=== PATIENT | male | born 1955 | race Caucasian/White ===

== ENCOUNTER 2019-01-12 07:43 | Inpatient (IN) | payer MEDICARE, OTHER ==
[2019-01-02 11:33] VITALS: BMI 25.1
[2019-01-12] VITALS (38 sets, daily range): BP systolic 100–131; BP diastolic 61–85; PULSE 67–110; RESP 6–20; Ht 188 cm; Wt 87.5 kg
[~2019-01-12] VITALS: Ht 188 cm; Wt 87.5 kg
[~2019-01-12 07:43] MED LIST: ACETAMINOPHEN 1000MG/100ML IV 100 ML IVPB ONE; CEFAZOLIN 2 GM/50 ML (PMX) 50 ML IVPB SCH; DEXAMETHASONE 4 MG/ML 1 ML INJ IV SCH; LACTATED RINGER'S 1,000 ML IV SCH; TRANEXAMIC ACID 1GM/100ML(PMX) 100 ML IVPB SCH
[2019-01-12] MEDS ORDERED: DEXAMETHASONE 4 MG/ML 1 ML INJ ONE (08:52)
[2019-01-12] MEDS ORDERED: POLYMYXIN B 500000 UNIT INJ ONE (10:19)
[2019-01-12] MEDS ORDERED: TRANEXAMIC ACID 1GM/100ML(PMX) 200 ML ONE (10:19)
--- NOTE | 2019-01-12 10:22 | HPN ---
Date/Time of Note Date/Time of Note DATE: 01/12/19 TIME: 10:22 Interval H&P Admission Note Pt. seen H&P reviewed: No system changes CRYSTAL LAMB Jan 12, 2019 10:22
--- NOTE | 2019-01-12 10:41 | PREAC ---
Date/Time of Note Date/Time of Note DATE: 01/12/19 TIME: 10:39 Anesthesia Eval and Record Evaluation Time Pre-Procedure Interview DATE: 01/12/19 TIME: 10:39 Age 63 Sex male NPO: 8 hrs Preoperative diagnosis degenerative joint disease Planned procedure total knee replacement Past Medical History Past Medical History: Includes Cardio: HTN, Dyslipidemia Surgery & Anesthesia Issues No known issue Meds Anticoagulation: No Beta Nilson within 24 hr: No Reason Beta Nilson not given: Pt. not on B-Nilson No Active Prescriptions or Reported Meds Current Medications Cefazolin Sodium/ Dextrose 50 ml @ 100 mls/hr ONCE IVPB ; Start 01/12/19 at 11:00; Stop 01/12/19 at 18:00 Acetaminophen 100 ml @ 400 mls/hr ONCE ONCE IVPB Last administered on 01/12/19at 09:03; Admin Dose 400 MLS/HR; Start 01/12/19 at 11:00; Stop 01/12/19 at 11:14 Dexamethasone (Decadron) 4 mg ONCE IV Last administered on 01/12/19at 09:02; Admin Dose 4 MG; Start 01/12/19 at 11:00; Stop 01/12/19 at 18:00 Ropivacaine/ Clonidine HCl/ Epinephrine/ Ketorolac Tromethamine/ Sodium Chloride INTRA-OP ONCE IRR ; Start 01/12/19 at 11:00; Stop 01/12/19 at 11:01 Lactated Ringer's 1,000 ml @ 125 mls/hr Q8H IV Last administered on 01/12/19at 09:04; Admin Dose 125 MLS/HR; Start 01/12/19 at 07:00; Stop 01/12/19 at 14:59 Meds reviewed: Yes Allergies Coded Allergies: zolpidem (Verified Allergy, Severe, HALLUCINATIONS, 01/12/19) Allergies Reviewed: Yes Labs/Studies Labs Reviewed: Reviewed by anesthesiologist test: N/A Pre-procedure Exam Last vitals Vital Signs Date Temp Pulse Resp B/P (MAP) Pulse Ox O2 O2 Flow FiO2 Time Delivery Rate 01/12/19 97.5 78 16 104/70 98 Room Air 09:33 (81) Airway: Adequate mouth opening, Adequate thyromental dist Mallampati: Mallampati IV Teeth: Normal Lung: Normal Heart: Normal ASA Physical Status ASA physical status: 2 Emergency: None Pre-operative Attestations Prior to commencing anesthesia and surgery, the patient was re-evaluated, there was verification of: *The patient's identity *The results of appropriate recent lab work and preoperative vital signs *The above evaluation not changing prior to induction *Anesthetic plan, risk benefits, alternative and complications discussed with patient/family; questions answered; patient/family understands, accepts and wishes to proceed. FAHEEM WINKLER DO Jan 12, 2019 10:41
[2019-01-12] MEDS ORDERED: PROPOFOL 20 ML ONE (10:44)
[2019-01-12] MEDS ORDERED: FENTAnyl 50 MCG/ML VIAL ONE (10:44)
[2019-01-12] MEDS ORDERED: MIDAZOLAM 1 MG/ML 2 ML INJ ONE (10:44)
[2019-01-12] MEDS ORDERED: LIDOCAINE 2% (SDV) 5 ML INJ ONE (10:44)
[2019-01-12] MEDS ORDERED: CEFAZOLIN 1 GM INJ ONE (10:58)
[2019-01-12] MEDS ORDERED: ACETAMINOPHEN 1000MG/100ML IV 100 ML IVPB ONE (11:00)
[2019-01-12] MEDS ORDERED: DEXAMETHASONE 4 MG/ML 1 ML INJ IV SCH (11:00)
[2019-01-12] MEDS ORDERED: CEFAZOLIN 2 GM/50 ML (PMX) 50 ML IVPB SCH (11:00)
[2019-01-12] MEDS ORDERED: DEXAMETHASONE 4 MG/ML 5 ML INJ ONE (11:22)
[2019-01-12] MEDS ORDERED: ONDANSETRON 4 MG INJ ONE (11:22)
[2019-01-12] MEDS ORDERED: BACITRACIN 50000 UNITS INJ INJ ONE (11:39)
--- NOTE | 2019-01-12 13:13 | SIPON ---
Date/Time of Note Date/Time of Note DATE: 01/12/19 TIME: 13:12 Operative Report Preoperative Diagnosis Failed right knee replacement Postoperative Diagnosis Same Operation/Procedure Performed Revision of right total knee replacement Surgeon see signature line printing assistant Nazanin Tirado PA-C Anesthesia: spinal Estimated blood loss: 250 - 300 ml's Transfusion Required none Specimen Cultures Grafts/Implants none Complications none CRYSTAL LAMB Jan 12, 2019 13:13
--- NOTE | 2019-01-12 13:19 | OPR ---
Date/Time of Note Date/Time of Note DATE: 01/12/19 TIME: 13:13 Operative Report Procedure Date: Jan 12, 2019 Preoperative Diagnosis Failed right knee replacement Postoperative Diagnosis Same Operation/Procedure Performed Revision of right total knee replacement Surgeon see signature line Belt Loop Maker MARCUS Back Anesthesia Type: spinal Estimated Blood Loss: 250 - 300 ml's Transfusion none Specimen Cultures and explant Grafts/Implants Attune revision knee, size 6 femur, size 6 tibia, 14 mm polyethylene and 38 patella. A 45 mm femoral sleeve along with 18 x 60 mm femoral stem; 40 mm tibial sleeve with a 16 x 60 mm tibial stem. Tubes/Drains None Complications none Pt Condition Post Procedure: stable Disposition: PACU Indications The patient is a 63-year-old male with a progressive pain in his right knee replacement. Bone scan shows loosening of the tibial component. There is possible loosening of the femoral component as well Procedure Description The patient was placed supine on the operating room table. The right knee was prepped and draped in usual manner. Examination of the knee showed mild instability. Quadriceps atrophy was noted. An anterior incision was made. A mid vastus approach was used. Medial and lateral gutters were cleared of scar tissue. There was evidence of polyethylene wear and osteo lysis and granulation tissue formation due to poly-wear. The femoral and tibial components were removed with the help of microsagittal saw and flexible osteotomes. The tibial component was loose. There was no evidence of fracture or bone loss, however osteolysis was noted on the femoral side. The patellar component was removed as well. Debridement of the knee was done. The knee was thoroughly irrigated and all remnants of previous cement was removed. The tibial preparation was done for a 16 x 60 mm stem along with a 40 mm sleeve from the attune knee system. The tibia was measured to be a size 6. On the femoral side, the femur was prepared for a size 6 component with a 45 mm sleeve and 18 x 60 mm stem. Trial components were inserted along with a 14 mm rotating platform polyethylene. This resulted in a stable knee from 0 to 130 degrees with good balance and tracking. X-rays confirm proper alignment of the implants. A mild valgus orientation of the lower extremity was accepted due to excellent balance and stability of the knee. The knee was injected with pain cocktail. Hemostasis was confirmed with electrocautery and aqua mantis. The trials were removed. The knee was thoroughly irrigated and final components assembled on the back table. The components were porous-coated on the sleeves. Both femoral and tibial components were placed with cement on the cut surface and porous-coated sleeves for ingrowth. 14 mm of rotating platform polyethylene was placed to complete the knee replacement. Excess cement was removed. The knee was stable with full range of motion. The knee was closed in layers using #1 strata fix for deep fascia, 2-0 Vicryl for subcutaneous tissue and 3-0 Monocryl for the skin. Patient was transferred to the recovery room in stable condition CRYSTAL LAMB Jan 12, 2019 13:19
[2019-01-12] MEDS ORDERED: ROPIVACAINE 0.5 % 30 ML VIAL ONE (13:28)
[2019-01-12] MEDS ORDERED: NALOXONE (0.4 MG/ML) INJ IV PRN (13:30)
[2019-01-12] MEDS ORDERED: NACL 0.9% 3 ML SYG IV SCH (13:30)
[2019-01-12] MEDS ORDERED: oxyCODONE 5 MG TAB PO PRN ×2 (13:30)
--- NOTE | 2019-01-12 14:04 | PAC ---
Date/Time of Note Date/Time of Note DATE: 01/12/19 TIME: 14:03 Post-Anesthesia Notes Post-Anesthesia Note Last documented vital signs Vital Signs Date Temp Pulse Resp B/P (MAP) Pulse Ox O2 O2 Flow FiO2 Time Delivery Rate 01/12/19 98 75 18 105/65 98 Room Air 09:33 Activity: WNL Respiratory function: WNL Cardiovascular function: WNL Mental status: Baseline Pain reasonably controlled: Yes Hydration appropriate: Yes Nausea/Vomiting absent: Yes FAHEEM WINKLER DO Jan 12, 2019 14:04
[2019-01-12] MEDS: HYDROmorphONE 1 MG/5 ML IV SYRINGE IV PRN ×2 (14:26→14:36)
[2019-01-12] MEDS ORDERED: HYDROmorphONE 1 MG/5 ML IV SYRINGE IV PRN ×2 (14:30)
[2019-01-12] MEDS: CEFAZOLIN 2 GM/50 ML (PMX) 50 ML IVPB SCH ×2 (15:38→22:32)
[2019-01-12] MEDS: oxyCODONE 5 MG TAB PO PRN ×2 (17:52→23:53)
[2019-01-12] MEDS: LACTATED RINGER'S 1,000 ML IV SCH (17:53)
[2019-01-12] MEDS: KETOROLAC 15 MG INJ IV PRN (18:38)
[2019-01-12] MEDS ORDERED: ONDANSETRON 4 MG INJ IV PRN (19:00)
[2019-01-12] MEDS: HYDROmorphONE 1 MG/ML SYG IV PRN ×2 (19:19→22:49)
[2019-01-12] MEDS: traZODone 50 MG TAB PO SCH (22:31)
[2019-01-12] MEDS: GABAPENTIN 100 MG CAP PO SCH (22:32)
[2019-01-13] VITALS: BP 104/59; PULSE 96; RESP 20
[2019-01-13] MEDS: LACTATED RINGER'S 1,000 ML IV SCH ×3 (01:49→22:25)
--- NOTE | 2019-01-13 03:07 | HP ---
Date/Time of Note Date/Time of Note DATE: 01/13/19 TIME: 03:05 Assessment/Plan VTE Prophylaxis Risk score (from Nsg)>0 risk: 3 SCD applied (from Nsg): Yes Lines/Catheters IV Catheter Type (from Nrsg): Peripheral IV Urinary Cath still in place: Yes Assessment/Plan Assessment/Plan Failed right knee replacement Revision of right total knee replacement - per ortho GERD - protonix HPI/ROS Admit Date/Time Admit Date/Time Jan 12, 2019 at 07:43 PMH/Family/Social Past Medical History Medications Current Medications Lactated Ringer's 1,000 ml @ 80 mls/hr [id number] IV Last administered on 12/31 10/18at 17:53; Admin Dose 80 MLS/HR; Start 01/12/19 at 13:19 IV Flush (NS 3 ml) 3 ml PER PROTOCOL IV ; Start 01/12/19 at 13:30 Oxycodone HCl (Roxicodone) 15 mg Q4H PRN PO .PAIN Last administered on 01/12/19at 23:53; Admin Dose 15 MG; Start 01/12/19 at 13:30 Oxycodone HCl (Roxicodone) 10 mg Q4H PRN PO .PAIN; Start 01/12/19 at 13:30 Oxycodone HCl (Roxicodone) 5 mg Q4H PRN PO .PAIN; Start 01/12/19 at 13:30 Ketorolac Tromethamine (Toradol) 15 mg Q6H PRN IV .PAIN Last administered on 01/12/19at 18:38; Admin Dose 15 MG; Start 01/12/19 at 13:30 Cefazolin Sodium/ Dextrose 50 ml @ 100 mls/hr Q8H IVPB Last administered on 01/12/19at 22:32; Admin Dose 100 MLS/HR; Start 01/12/19 at 13:30; Stop 01/13/19 at 05:59 Celecoxib (Celebrex) 100 mg BID PO ; Start 01/13/19 at 09:00 Gabapentin (Neurontin) 100 mg TID PO Last administered on 01/12/19at 22:32; Admin Dose 100 MG; Start 01/12/19 at 21:00 Pantoprazole (Protonix Tab) 40 mg DAILY@06 PO ; Start 01/14/19 at 06:00 Docusate Sodium (Colace) 200 mg BID PO ; Start 01/13/19 at 09:00; Stop 01/16/19 at 08:59 Magnesium Hydroxide (Milk Of Mag) 30 ml HS PRN PO .CONSTIPATION; Start 01/12/19 at 13:30 Naloxone HCl (Narcan) 0.2 mg Q2M PRN IV .RESP RATE; Start 01/12/19 at 13:30 Aspirin (Halfprin) 81 mg BID PO ; Start 01/13/19 at 09:00 Trazodone HCl (Desyrel) 50 mg HS PO Last administered on 01/12/19at 22:31; Admin Dose 50 MG; Start 01/12/19 at 21:00 Hydromorphone HCl (Dilaudid) 1 mg Q3H PRN IV SEVERE PAIN LEVEL 7-10 Last administered on 01/12/19at 22:49; Admin Dose 1 MG; Start 01/12/19 at 19:00 Ondansetron HCl (Zofran Inj) 4 mg Q4H PRN IV NAUSEA AND/OR VOMITING; Start 01/12/19 at 19:00 Coded Allergies: zolpidem (Verified Allergy, Severe, HALLUCINATIONS, 01/12/19) Social History Smoking Status: Never smoker Exam/Review of Systems Vital Signs Vitals Vital Signs Date Temp Pulse Resp B/P (MAP) Pulse Ox O2 O2 Flow FiO2 Time Delivery Rate 01/13/19 98.6 96 20 104/59 98 Room Air 00:00 (74) Intake and Output 01/12/19 01/12/19 01/13/19 1515:00 23:00 07:00 IntakeIntake Total 1700 ml 500 ml OutputOutput Total 100 ml 800 ml BalanceBalance 1600 ml -300 ml LUIS A HERBERT Jan 13, 2019 03:07
[2019-01-13] MEDS: HYDROmorphONE 1 MG/ML SYG IV PRN ×5 (03:34→20:11)
[2019-01-13] MEDS: oxyCODONE 5 MG TAB PO PRN ×2 (04:36→17:00)
[2019-01-13] MEDS: CEFAZOLIN 2 GM/50 ML (PMX) 50 ML IVPB SCH (06:39)
[2019-01-13 07:22] VITALS: BP 105/57; PULSE 79; RESP 19
[2019-01-13] MEDS: GABAPENTIN 100 MG CAP PO SCH ×3 (08:18→20:12)
[2019-01-13] MEDS: DOCUSATE SODIUM 100 MG CAP PO SCH ×2 (08:18→20:11)
[2019-01-13] MEDS: ASPIRIN (EC) 81 MG TAB PO SCH ×2 (08:18→20:12)
[2019-01-13] MEDS: PANTOPRAZOLE (EC) 40 MG TAB PO SCH (08:18)
[2019-01-13] MEDS: CELECOXIB 100 MG CAP PO SCH ×2 (08:18→20:11)
[2019-01-13] MEDS: KETOROLAC 15 MG INJ IV PRN ×2 (08:26→21:08)
[2019-01-13] MEDS ORDERED: ONDANSETRON 4 MG INJ IV PRN (13:30)
[2019-01-13] MEDS: MAGNESIUM HYDROXIDE 30ML CUP PO PRN (17:42)
--- NOTE | 2019-01-13 19:01 | CONS ---
Assessment/Plan Assessment/Plan Hospital Course (Demo Recall) 63-year-old male underwent revision of right total knee replacement on . When he woke up from the surgery he noticed he had an indwelling Bell catheter and he complains that he feels bloated and thinks that the catheter is not draining well. The patient denies any prior history of voiding problems he usually has nocturia about 2 times a night and during the day he voids every 3 hours, he denies any dysuria, no history of gross hematuria, his urinary stream is strong, he denies any postvoid dribbling and he feels he empties his bladder well. On the exam the Bell catheter is in good position and it is draining well and the urine is clear. Impression: Patient may be having bladder spasms because of the irritation from the Bell catheter. Plan: Since he had no prior history of urinary problems we will discontinue the Bell catheter at 6 AM and see if he does void. I will also put him on tamsulosin just in case there is any obstructive element from the prostate.DO urine culture Consultation Date/Type/Reason Admit Date/Time Jan 12, 2019 at 07:43 Date of Consultation: Jan 13, 2019 Type of Consult Urology Reason for Consultation Penile pain, indwelling Bell catheter with question of blockage Requesting Provider: BRIAN BLEVINS MD Date/Time of Note DATE: 01/13/19 TIME: 18:47 Hx of Present Illness 63-year-old male underwent revision of right total knee replacement on 01/12/2019. When he woke up from the surgery he noticed he had an indwelling Bell catheter and he complains that he feels bloated and thinks that the catheter is not draining well. The patient denies any prior history of voiding problems he usually has nocturia about 2 times a night and during the day he voids every 3 hours, he denies any dysuria, no history of gross hematuria, his urinary stream is strong, he denies any postvoid dribbling and he feels he empties his bladder well. Constitutional: no complaints Eyes: no complaints ENT: no complaints Respiratory: no complaints; No shortness of breath Cardiovascular: no complaints; No chest pain Gastrointestinal: no complaints, other (Complains of hemorrhoids) Genitourinary: other (As per history of present illness) Musculoskeletal: no complaints, other (Status post right knee replacement revision) Skin: no complaints Neurologic: no complaints Endocrine: no complaints Psychological: no complaints Immunologic: no complaints Past Medical History Medical History: high cholesterol Home Meds No Active Prescriptions or Reported Meds Medications Current Medications Lactated Ringer's 1,000 ml @ 80 mls/hr [id number] IV Last administered on 01/13/19 08:26; Admin Dose 80 MLS/HR; Start 01/12/19 at 13:19 IV Flush (NS 3 ml) 3 ml PER PROTOCOL IV ; Start 01/12/19 at 13:30 Oxycodone HCl (Roxicodone) 15 mg Q4H PRN PO .PAIN Last administered on 01/13/19 17:00; Admin Dose 15 MG; Start 01/12/19 at 13:30 Oxycodone HCl (Roxicodone) 10 mg Q4H PRN PO .PAIN; Start 01/12/19 at 13:30 Oxycodone HCl (Roxicodone) 5 mg Q4H PRN PO .PAIN; Start 01/12/19 at 13:30 Ketorolac Tromethamine (Toradol) 15 mg Q6H PRN IV .PAIN Last administered on 01/13/19 08:26; Admin Dose 15 MG; Start 01/12/19 at 13:30 Celecoxib (Celebrex) 100 mg BID PO Last administered on 01/13/19 08:18; Admin Dose 100 MG; Start 01/13/19 at 09:00 Gabapentin (Neurontin) 100 mg TID PO Last administered on 01/13/19 13:01; Admin Dose 100 MG; Start 01/12/19 at 21:00 Docusate Sodium (Colace) 200 mg BID PO Last administered on 01/13/19 08:18; Admin Dose 200 MG; Start 01/13/19 at 09:00; Stop 01/16/19 at 08:59 Magnesium Hydroxide (Milk Of Mag) 30 ml HS PRN PO .CONSTIPATION Last administered on 01/13/19 17:42; Admin Dose 30 ML; Start 01/12/19 at 13:30 Naloxone HCl (Narcan) 0.2 mg Q2M PRN IV .RESP RATE; Start 01/12/19 at 13:30 Aspirin (Halfprin) 81 mg BID PO Last administered on 01/13/19at 08:18; Admin Dose 81 MG; Start 01/13/19 at 09:00 Trazodone HCl (Desyrel) 50 mg HS PO Last administered on 01/12/19at 22:31; Admin Dose 50 MG; Start 01/12/19 at 21:00 Hydromorphone HCl (Dilaudid) 1 mg Q3H PRN IV SEVERE PAIN LEVEL 7-10 Last administered on 01/13/19at 16:26; Admin Dose 1 MG; Start 01/12/19 at 19:00 Ondansetron HCl (Zofran Inj) 4 mg Q4H PRN IV NAUSEA AND/OR VOMITING; Start 01/12/19 at 19:00 Pantoprazole (Protonix Tab) 40 mg DAILY@06 PO Last administered on 01/13/19at 08:18; Admin Dose 40 MG; Start 01/13/19 at 08:30 Allergies: Coded Allergies: zolpidem (Verified Allergy, Severe, HALLUCINATIONS, 01/12/19) Past Surgical History Past Surgical Hx: other (Inguinal hernia repair x2, colonoscopy, pyloroplasty at age 3 weeks) Social History Alcohol Use: none Smoking Status: Never smoker Drug Use: none Other Social History He is single Exam/Review of Systems Exam Vitals Vital Signs Date Temp Pulse Resp B/P (MAP) Pulse Ox O2 O2 Flow FiO2 Time Delivery Rate 01/13/19 98.2 79 19 105/57 98 07:22 (73) 01/13/19 Room Air 00:00 Intake and Output 01/12/19 01/12/19 01/13/19 1515:00 23:00 07:00 IntakeIntake Total 1700 ml 500 ml 800 ml OutputOutput Total 100 ml 800 ml BalanceBalance 1600 ml -300 ml 800 ml Constitutional: alert, oriented Psych: no complaints Head: normocephalic Eyes: nl conjunctiva Neck: supple, non-tender Respiratory: normal air movement; No wheezing Cardiovascular: No jugular venous distention (JVD) Gastrointestinal: soft Genitourinary - Male: nl penis, nl scrotum, other (Has an indwelling Bell catheter that is in good position and draining clear urine) Musculoskeletal: nl extremities to inspection, other (Patient is post surgery on his right knee) Extremities: other (Status post surgery on the right knee) Neurological: nl mental status Skin: nl turgor Lymph: nl lymph nodes Results Result Diagram: 01/13/19 0501 01/13/19 0501 Results 24hrs Laboratory Tests Test 01/13/19 05:01 01/13/19 07:34 01/13/19 12:00 White Blood Count 12.7 H Red Blood Count 3.35 L Hemoglobin 10.5 L Hematocrit 30.8 L Mean Corpuscular Volume 91.9 Mean Corpuscular Hemoglobin 31.3 Mean Corpuscular 34.1 Hemoglobin Concent Red Cell Distribution Width 12.6 Platelet Count 181 Mean Platelet Volume 9.5 Immature Granulocytes % 0.600 H Neutrophils % 77.8 H Lymphocytes % 10.6 L Monocytes % 10.9 Eosinophils % 0.0 Basophils % 0.1 Nucleated Red Blood Cells % 0.0 Immature Granulocytes # 0.080 H Neutrophils # 9.9 H Lymphocytes # 1.4 Monocytes # 1.4 H Eosinophils # 0.0 Basophils # 0.0 Nucleated Red Blood Cells # 0.0 Sodium Level 140 Potassium Level 4.2 Chloride Level 107 Carbon Dioxide Level 24 Anion Gap 9 Blood Urea Nitrogen 18 Creatinine 0.81 Est Glomerular Filtrat > 60 Rate mL/min Glucose Level 135 Calcium Level 8.2 L Lab Scanned Report REFERENCE LAB Urine Color YELLOW Urine Clarity SLIGHTLY CLOUDY A Urine pH 5.0 Urine Specific [place] 1.032 H Urine Ketones TRACE A Urine Nitrite NEGATIVE Urine Bilirubin NEGATIVE Urine Urobilinogen NEGATIVE Urine Leukocyte Esterase NEGATIVE Urine Microscopic RBC 101 H Urine Microscopic WBC 7 H Urine Mucus FEW A Urine Hemoglobin 3+ H Urine Glucose NEGATIVE Urine Total Protein 1+ H Medications Medication Current Medications Lactated Ringer's 1,000 ml @ 80 mls/hr [id number] IV Last administered on 01/13/19at 08:26; Admin Dose 80 MLS/HR; Start 01/12/19 at 13:19 IV Flush (NS 3 ml) 3 ml PER PROTOCOL IV ; Start 01/12/19 at 13:30 Oxycodone HCl (Roxicodone) 15 mg Q4H PRN PO .PAIN Last administered on 01/13/19at 17:00; Admin Dose 15 MG; Start 01/12/19 at 13:30 Oxycodone HCl (Roxicodone) 10 mg Q4H PRN PO .PAIN; Start 01/12/19 at 13:30 Oxycodone HCl (Roxicodone) 5 mg Q4H PRN PO .PAIN; Start 01/12/19 at 13:30 Ketorolac Tromethamine (Toradol) 15 mg Q6H PRN IV .PAIN Last administered on 01/13/19 08:26; Admin Dose 15 MG; Start 01/12/19 at 13:30 Celecoxib (Celebrex) 100 mg BID PO Last administered on 01/13/19 08:18; Admin Dose 100 MG; Start 01/13/19 at 09:00 Gabapentin (Neurontin) 100 mg TID PO Last administered on 01/13/19 13:01; Admin Dose 100 MG; Start 01/12/19 at 21:00 Docusate Sodium (Colace) 200 mg BID PO Last administered on 01/13/19 08:18; Admin Dose 200 MG; Start 01/13/19 at 09:00; Stop 01/16/19 at 08:59 Magnesium Hydroxide (Milk Of Mag) 30 ml HS PRN PO .CONSTIPATION Last administered on 01/13/19 17:42; Admin Dose 30 ML; Start 01/12/19 at 13:30 Naloxone HCl (Narcan) 0.2 mg Q2M PRN IV .RESP RATE; Start 01/12/19 at 13:30 Aspirin (Halfprin) 81 mg BID PO Last administered on 01/13/19 08:18; Admin Dose 81 MG; Start 01/13/19 at 09:00 Trazodone HCl (Desyrel) 50 mg HS PO Last administered on 01/12/19 22:31; Admin Dose 50 MG; Start 01/12/19 at 21:00 Hydromorphone HCl (Dilaudid) 1 mg Q3H PRN IV SEVERE PAIN LEVEL 7-10 Last administered on 01/13/19 16:26; Admin Dose 1 MG; Start 01/12/19 at 19:00 Ondansetron HCl (Zofran Inj) 4 mg Q4H PRN IV NAUSEA AND/OR VOMITING; Start 01/12/19 at 19:00 Pantoprazole (Protonix Tab) 40 mg DAILY@06 PO Last administered on 01/13/19 08:18; Admin Dose 40 MG; Start 01/13/19 at 08:30 BLANCA SINGER MD Jan 13, 2019 18:57
[2019-01-13 19:25] VITALS: BP 107/64; PULSE 89; RESP 20
[2019-01-13] MEDS: traZODone 50 MG TAB PO SCH (20:11)
[2019-01-13] MEDS: TAMSULOSIN (SR) 0.4 MG CAP PO SCH (20:11)
[2019-01-14] MEDS: oxyCODONE 5 MG TAB PO PRN ×6 (00:19→23:58)
[2019-01-14] MEDS ORDERED: AL HYDROX/MG HYDROX/SIMETH 30 ML CUP PO PRN (00:30)
[2019-01-14] MEDS: ACETAMINOPHEN 325 MG TAB PO PRN ×2 (00:41→17:27)
[2019-01-14 02:15] VITALS: BP 96/58; PULSE 94; RESP 20
[2019-01-14] MEDS: HYDROmorphONE 1 MG/ML SYG IV PRN ×4 (03:59→20:34)
[2019-01-14] MEDS ORDERED: PANTOPRAZOLE (EC) 40 MG TAB PO SCH (06:00)
[2019-01-14] MEDS: PANTOPRAZOLE (EC) 40 MG TAB PO SCH (06:12)
[2019-01-14 07:15] VITALS: BP 102/60; PULSE 87; RESP 14
[2019-01-14] MEDS: ASPIRIN (EC) 81 MG TAB PO SCH ×2 (08:28→20:35)
[2019-01-14] MEDS: GABAPENTIN 100 MG CAP PO SCH ×3 (08:28→20:34)
[2019-01-14] MEDS: CELECOXIB 100 MG CAP PO SCH ×2 (08:28→20:35)
[2019-01-14] MEDS: DOCUSATE SODIUM 100 MG CAP PO SCH ×2 (08:28→20:35)
--- NOTE | 2019-01-14 11:13 | PN ---
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 - per ortho GERD - protonix Result Diagram: 01/14/199 01/14/19 0439 Results 24hrs Laboratory Tests Test 01/13/19 12:00 01/14/19 04:39 Urine Color YELLOW Urine Clarity SLIGHTLY CLOUDY A Urine pH 5.0 Urine Specific Sharples 1.032 H Urine Ketones TRACE A Urine Nitrite NEGATIVE Urine Bilirubin NEGATIVE Urine Urobilinogen NEGATIVE Urine Leukocyte Esterase NEGATIVE Urine Microscopic RBC 101 H Urine Microscopic WBC 7 H Urine Mucus FEW A Urine Hemoglobin 3+ H Urine Glucose NEGATIVE Urine Total Protein 1+ H White Blood Count 7.7 # Red Blood Count 2.87 L Hemoglobin 9.1 L Hematocrit 27.0 L Mean Corpuscular Volume 94.1 Mean Corpuscular Hemoglobin 31.7 Mean Corpuscular Hemoglobin Concent 33.7 Red Cell Distribution Width 12.9 Platelet Count 148 Mean Platelet Volume 9.5 Immature Granulocytes % 0.100 Neutrophils % 72.6 Lymphocytes % 14.6 L Monocytes % 12.4 H Eosinophils % 0.0 Basophils % 0.3 Nucleated Red Blood Cells % 0.0 Immature Granulocytes # 0.010 Neutrophils # 5.6 Lymphocytes # 1.1 Monocytes # 1.0 H Eosinophils # 0.0 Basophils # 0.0 Nucleated Red Blood Cells # 0.0 Sodium Level 140 Potassium Level 4.0 Chloride Level 107 Carbon Dioxide Level 28 Anion Gap 5 Blood Urea Nitrogen 19 Creatinine 0.77 Est Glomerular Filtrat Rate mL/min > 60 Glucose Level 124 Calcium Level 7.9 L Subjective 24 Hr Interval Summary Free Text/Dictation Patient has pain in knee Exam/Review of Systems Exam Vitals Vital Signs Date Temp Pulse Resp B/P (MAP) Pulse Ox O2 O2 Flow FiO2 Time Delivery Rate 01/14/19 98.1 87 14 102/60 98 Room Air 07:15 (74) Intake and Output 01/13/19 01/13/19 01/14/19 1515:00 23:00 07:00 IntakeIntake Total 50 ml 840 ml OutputOutput Total 1330 ml BalanceBalance 50 ml -490 ml Constitutional: well developed Head: normocephalic, atraumatic Neck: supple Respiratory: diminished breath sounds Cardiovascular: regular rate and rhythm Gastrointestinal: soft, non-tender Extremities: normal pulses Results Results 24hrs Laboratory Tests Test 01/13/19 12:00 01/14/19 04:39 Urine Color YELLOW Urine Clarity SLIGHTLY CLOUDY A Urine pH 5.0 Urine Specific Sharples 1.032 H Urine Ketones TRACE A Urine Nitrite NEGATIVE Urine Bilirubin NEGATIVE Urine Urobilinogen NEGATIVE Urine Leukocyte Esterase NEGATIVE Urine Microscopic RBC 101 H Urine Microscopic WBC 7 H Urine Mucus FEW A Urine Hemoglobin 3+ H Urine Glucose NEGATIVE Urine Total Protein 1+ H White Blood Count 7.7 # Red Blood Count 2.87 L Hemoglobin 9.1 L Hematocrit 27.0 L Mean Corpuscular Volume 94.1 Mean Corpuscular Hemoglobin 31.7 Mean Corpuscular Hemoglobin Concent 33.7 Red Cell Distribution Width 12.9 Platelet Count 148 Mean Platelet Volume 9.5 Immature Granulocytes % 0.100 Neutrophils % 72.6 Lymphocytes % 14.6 L Monocytes % 12.4 H Eosinophils % 0.0 Basophils % 0.3 Nucleated Red Blood Cells % 0.0 Immature Granulocytes # 0.010 Neutrophils # 5.6 Lymphocytes # 1.1 Monocytes # 1.0 H Eosinophils # 0.0 Basophils # 0.0 Nucleated Red Blood Cells # 0.0 Sodium Level 140 Potassium Level 4.0 Chloride Level 107 Carbon Dioxide Level 28 Anion Gap 5 Blood Urea Nitrogen 19 Creatinine 0.77 Est Glomerular Filtrat Rate mL/min > 60 Glucose Level 124 Calcium Level 7.9 L Medications Medication Current Medications Lactated Ringer's 1,000 ml @ 80 mls/hr [id number] IV Last administered on 01/13/19at 08:26; Admin Dose 80 MLS/HR; Start 01/12/19 at 13:19 IV Flush (NS 3 ml) 3 ml PER PROTOCOL IV ; Start 01/12/19 at 13:30 Oxycodone HCl (Roxicodone) 15 mg Q4H PRN PO .PAIN Last administered on 01/14/19at 10:07; Admin Dose 15 MG; Start 01/12/19 at 13:30 Oxycodone HCl (Roxicodone) 10 mg Q4H PRN PO .PAIN; Start 01/12/19 at 13:30 Oxycodone HCl (Roxicodone) 5 mg Q4H PRN PO .PAIN; Start 01/12/19 at 13:30 Ketorolac Tromethamine (Toradol) 15 mg Q6H PRN IV .PAIN Last administered on 01/13/19 21:08; Admin Dose 15 MG; Start 01/12/19 at 13:30 Celecoxib (Celebrex) 100 mg BID PO Last administered on 01/14/19 08:28; Admin Dose 100 MG; Start 01/13/19 at 09:00 Gabapentin (Neurontin) 100 mg TID PO Last administered on 01/14/19 08:28; Adm in Dose 100 MG; Start 01/12/19 at 21:00 Docusate Sodium (Colace) 200 mg BID PO Last administered on 01/14/19 08:28; Admin Dose 200 MG; Start 01/13/19 at 09:00; Stop 01/16/19 at 08:59 Magnesium Hydroxide (Milk Of Mag) 30 ml HS PRN PO .CONSTIPATION Last administered on 01/13/19 17:42; Admin Dose 30 ML; Start 01/12/19 at 13:30 Naloxone HCl (Narcan) 0.2 mg Q2M PRN IV .RESP RATE; Start 01/12/19 at 13:30 Aspirin (Halfprin) 81 mg BID PO Last administered on 01/14/19 08:28; Admin Dose 81 MG; Start 01/13/19 at 09:00 Trazodone HCl (Desyrel) 50 mg HS PO Last administered on 01/13/19 20:11; Admin Dose 50 MG; Start 01/12/19 at 21:00 Hydromorphone HCl (Dilaudid) 1 mg Q3H PRN IV SEVERE PAIN LEVEL 7-10 Last administered on 01/14/19 08:28; Admin Dose 1 MG; Start 01/12/19 at 19:00 Ondansetron HCl (Zofran Inj) 4 mg Q4H PRN IV NAUSEA AND/OR VOMITING; Start 01/12/19 at 19:00 Pantoprazole (Protonix Tab) 40 mg DAILY@06 PO Last administered on 01/14/19 06:12; Admin Dose 40 MG; Start 01/13/19 at 08:30 Tamsulosin HCl (Flomax) 0.4 mg HS PO Last administered on 01/13/19at 20:11; Admin Dose 0.4 MG; Start 01/13/19 at 21:00 Al Hydrox/Mg Hydrox/Simethicone (Mag-Al Plus) 30 ml Q6H PRN PO GASTROINTESTINAL UPSET Last administered on 01/14/19at 00:40; Admin Dose 30 ML; Start 01/14/19 at 00:30 Acetaminophen (Tylenol Tab) 650 mg Q6H PRN PO MILD PAIN(1-3)OR ELEVATED TEMP Last administered on 01/14/19at 00:41; Admin Dose 650 MG; Start 01/14/19 at 00:30 RUDY GILES Jan 14, 2019 11:13
[2019-01-14 14:28] VITALS: BP 98/61; PULSE 91; RESP 15
[2019-01-14] MEDS: LACTATED RINGER'S 1,000 ML IV SCH (15:19)
--- NOTE | 2019-01-14 16:48 | CONS ---
Consult Date/Type/Reason Admit Date/Time Jan 12, 2019 at 07:43 Initial Consult Date 01/13/19 Type of Consultation: Urology Reason for Consultation Urinary retention Requesting Provider: BRIAN BLEVINS MD Date/Time of Note DATE: 01/14/19 TIME: 16:46 Subjective Patient states that he has voided about 3 times since the Bell catheter was removed. Objective Vitals Vital Signs Date Temp Pulse Resp B/P (MAP) Pulse Ox O2 O2 Flow FiO2 Time Delivery Rate 01/14/19 98.3 91 15 98/61 (73) 98 Room Air 14:28 Intake and Output 01/13/19 01/13/19 01/14/19 1515:00 23:00 07:00 IntakeIntake Total 50 ml 840 ml OutputOutput Total 1330 ml BalanceBalance 50 ml -490 ml Exam Abdomen is soft, the bladder did not feel distended but no bladder scan was done after he voided to check his postvoid residual Results/Medications Result Diagram: 01/14/19 0439 01/14/19 0439 Results 24 hrs Laboratory Tests Test 01/14/19 04:39 White Blood Count 7.7 # Red Blood Count 2.87 L Hemoglobin 9.1 L Hematocrit 27.0 L Mean Corpuscular Volume 94.1 Mean Corpuscular Hemoglobin 31.7 Mean Corpuscular Hemoglobin Concent 33.7 Red Cell Distribution Width 12.9 Platelet Count 148 Mean Platelet Volume 9.5 Immature Granulocytes % 0.100 Neutrophils % 72.6 Lymphocytes % 14.6 L Monocytes % 12.4 H Eosinophils % 0.0 Basophils % 0.3 Nucleated Red Blood Cells % 0.0 Immature Granulocytes # 0.010 Neutrophils # 5.6 Lymphocytes # 1.1 Monocytes # 1.0 H Eosinophils # 0.0 Basophils # 0.0 Nucleated Red Blood Cells # 0.0 Sodium Level 140 Potassium Level 4.0 Chloride Level 107 Carbon Dioxide Level 28 Anion Gap 5 Blood Urea Nitrogen 19 Creatinine 0.77 Est Glomerular Filtrat Rate mL/min > 60 Glucose Level 124 Calcium Level 7.9 L Home Meds No Active Prescriptions or Reported Meds Medications Current Medications Lactated Ringer's 1,000 ml @ 80 mls/hr [id number] IV Last administered on 01/13/19at 08:26; Admin Dose 80 MLS/HR; Start 01/12/19 at 13:19 IV Flush (NS 3 ml) 3 ml PER PROTOCOL IV ; Start 01/12/19 at 13:30 Oxycodone HCl (Roxicodone) 15 mg Q4H PRN PO .PAIN Last administered on 01/14/19 at 14:21; Admin Dose 15 MG; Start 01/12/19 at 13:30 Oxycodone HCl (Roxicodone) 10 mg Q4H PRN PO .PAIN; Start 01/12/19 at 13:30 Oxycodone HCl (Roxicodone) 5 mg Q4H PRN PO .PAIN; Start 01/12/19 at 13:30 Ketorolac Tromethamine (Toradol) 15 mg Q6H PRN IV .PAIN Last administered on 01/13/19 21:08; Admin Dose 15 MG; Start 01/12/19 at 13:30 Celecoxib (Celebrex) 100 mg BID PO Last administered on 01/14/19 08:28; Admin Dose 100 MG; Start 01/13/19 at 09:00 Gabapentin (Neurontin) 100 mg TID PO Last administered on 01/14/19 12:29; Admin Dose 100 MG; Start 01/12/19 at 21:00 Docusate Sodium (Colace) 200 mg BID PO Last administered on 01/14/19 08:28; Admin Dose 200 MG; Start 01/13/19 at 09:00; Stop 01/16/19 at 08:59 Magnesium Hydroxide (Milk Of Mag) 30 ml HS PRN PO .CONSTIPATION Last administe red on 01/13/19at 17:42; Admin Dose 30 ML; Start 01/12/19 at 13:30 Naloxone HCl (Narcan) 0.2 mg Q2M PRN IV .RESP RATE; Start 01/12/19 at 13:30 Aspirin (Halfprin) 81 mg BID PO Last administered on 01/14/19 08:28; Admin Dose 81 MG; Start 01/13/19 at 09:00 Trazodone HCl (Desyrel) 50 mg HS PO Last administered on 01/13/19 20:11; Admin Dose 50 MG; Start 01/12/19 at 21:00 Hydromorphone HCl (Dilaudid) 1 mg Q3H PRN IV SEVERE PAIN LEVEL 7-10 Last administered on 01/14/19 12:29; Admin Dose 1 MG; Start 01/12/19 at 19:00 Ondansetron HCl (Zofran Inj) 4 mg Q4H PRN IV NAUSEA AND/OR VOMITING; Start 12/31 10/18 at 19:00 Pantoprazole (Protonix Tab) 40 mg DAILY@06 PO Last administered on 01/14/19 06:12; Admin Dose 40 MG; Start 01/13/19 at 08:30 Tamsulosin HCl (Flomax) 0.4 mg HS PO Last administered on 01/13/19at 20:11; Admin Dose 0.4 MG; Start 01/13/19 at 21:00 Al Hydrox/Mg Hydrox/Simethicone (Mag-Al Plus) 30 ml Q6H PRN PO GASTROINTESTINAL UPSET Last administered on 01/14/19at 00:40; Admin Dose 30 ML; Start 01/14/19 at 00:30 Acetaminophen (Tylenol Tab) 650 mg Q6H PRN PO MILD PAIN(1-3)OR ELEVATED TEMP Last administered on 01/14/19at 00:41; Admin Dose 650 MG; Start 01/14/19 at 00:30 Assessment/Plan Hospital Course (Demo Recall) 63-year-old male underwent revision of right total knee replacement on 01/12/2019. When he woke up from the surgery he noticed he had an indwelling Bell catheter and he complains that he feels bloated and thinks that the catheter is not draining well. The patient denies any prior history of voiding problems he usually has nocturia about 2 times a night and during the day he voids every 3 hours, he denies any dysuria, no history of gross hematuria, his urinary stream is strong, he denies any postvoid dribbling and he feels he empties his bladder well. On the exam the Bell catheter is in good position and it is draining well and the urine is clear. Impression: Patient may be having bladder spasms because of the irritation from the Bell catheter. The Bell catheter was removed earlier this morning and the patient has voided 3-4 times. No bladder scan was done to check his postvoid residual but that will be done this afternoon. If the postvoid residual is less than 100 mL we will discontinue the bladder scan. BLANCA SINGER MD Jan 14, 2019 16:48
[2019-01-14 20:24] VITALS: BP 111/57; PULSE 96; RESP 19
[2019-01-14] MEDS: TAMSULOSIN (SR) 0.4 MG CAP PO SCH (20:34)
[2019-01-14] MEDS: traZODone 50 MG TAB PO SCH (20:35)
[2019-01-15 02:40] VITALS: BP 114/62; PULSE 103; PULSE 88; RESP 19
[2019-01-15] MEDS: LACTATED RINGER'S 1,000 ML IV SCH (03:49)
[2019-01-15] MEDS: PANTOPRAZOLE (EC) 40 MG TAB PO SCH (04:19)
[2019-01-15] MEDS: oxyCODONE 5 MG TAB PO PRN ×3 (05:23→15:33)
[2019-01-15] MEDS: MAGNESIUM HYDROXIDE 30ML CUP PO PRN (05:23)
[2019-01-15] MEDS: ACETAMINOPHEN 325 MG TAB PO PRN (06:43)
[2019-01-15 07:11] VITALS: BP 98/60; PULSE 104; RESP 14
[2019-01-15] MEDS: CELECOXIB 100 MG CAP PO SCH ×2 (08:17→21:22)
[2019-01-15] MEDS: HYDROmorphONE 1 MG/ML SYG IV PRN ×4 (08:17→21:26)
[2019-01-15] MEDS: DOCUSATE SODIUM 100 MG CAP PO SCH ×2 (08:17→21:20)
[2019-01-15] MEDS: GABAPENTIN 100 MG CAP PO SCH ×3 (08:17→21:22)
[2019-01-15] MEDS: ASPIRIN (EC) 81 MG TAB PO SCH ×2 (08:17→21:22)
--- NOTE | 2019-01-15 11:13 | PN ---
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 - per ortho GERD - protonix Result Diagram: 01/15/19 0430 01/15/19 0430 Results 24hrs Laboratory Tests Test 01/15/19 04:30 White Blood Count 7.4 Red Blood Count 3.03 L Hemoglobin 9.3 L Hematocrit 28.3 L Mean Corpuscular Volume 93.4 Mean Corpuscular Hemoglobin 30.7 Mean Corpuscular Hemoglobin Concent 32.9 Red Cell Distribution Width 13.1 Platelet Count 155 Mean Platelet Volume 9.6 Immature Granulocytes % 0.100 Neutrophils % 64.6 Lymphocytes % 23.1 Monocytes % 11.8 H Eosinophils % 0.0 Basophils % 0.4 Nucleated Red Blood Cells % 0.0 Immature Granulocytes # 0.010 Neutrophils # 4.8 Lymphocytes # 1.7 Monocytes # 0.9 Eosinophils # 0.0 Basophils # 0.0 Nucleated Red Blood Cells # 0.0 Sodium Level 139 Potassium Level 4.1 Chloride Level 105 Carbon Dioxide Level 29 Anion Gap 5 Blood Urea Nitrogen 12 Creatinine 0.65 Est Glomerular Filtrat Rate mL/min > 60 Glucose Level 105 Calcium Level 7.9 L Subjective 24 Hr Interval Summary Free Text/Dictation Patient still have pain in knee where he had surgery Exam/Review of Systems Exam Vitals Vital Signs Date Temp Pulse Resp B/P (MAP) Pulse Ox O2 O2 Flow FiO2 Time Delivery Rate 01/15/19 98.9 104 14 98/60 (73) 100 Room Air 07:11 Intake and Output 01/14/19 01/14/19 01/15/19 1515:00 23:00 07:00 IntakeIntake Total 300 ml 200 ml OutputOutput Total 1305 ml BalanceBalance 300 ml -1105 ml Constitutional: well developed Head: normocephalic, atraumatic Neck: supple Respiratory: clear to auscultation Cardiovascular: regular rate and rhythm Gastrointestinal: soft, non-tender Extremities: normal pulses Results Results 24hrs Laboratory Tests Test 01/15/19 04:30 White Blood Count 7.4 Red Blood Count 3.03 L Hemoglobin 9.3 L Hematocrit 28.3 L Mean Corpuscular Volume 93.4 Mean Corpuscular Hemoglobin 30.7 Mean Corpuscular Hemoglobin Concent 32.9 Red Cell Distribution Width 13.1 Platelet Count 155 Mean Platelet Volume 9.6 Immature Granulocytes % 0.100 Neutrophils % 64.6 Lymphocytes % 23.1 Monocytes % 11.8 H Eosinophils % 0.0 Basophils % 0.4 Nucleated Red Blood Cells % 0.0 Immature Granulocytes # 0.010 Neutrophils # 4.8 Lymphocytes # 1.7 Monocytes # 0.9 Eosinophils # 0.0 Basophils # 0.0 Nucleated Red Blood Cells # 0.0 Sodium Level 139 Potassium Level 4.1 Chloride Level 105 Carbon Dioxide Level 29 Anion Gap 5 Blood Urea Nitrogen 12 Creatinine 0.65 Est Glomerular Filtrat Rate mL/min > 60 Glucose Level 105 Calcium Level 7.9 L Medications Medication Current Medications Lactated Ringer's 1,000 ml @ 80 mls/hr [id number] IV Last administered on 01/13/19at 08:26; Admin Dose 80 MLS/HR; Start 01/12/19 at 13:19 IV Flush (NS 3 ml) 3 ml PER PROTOCOL IV ; Start 01/12/19 at 13:30 Oxycodone HCl (Roxicodone) 15 mg Q4H PRN PO .PAIN Last administered on 01/15/19at 05:23; Admin Dose 15 MG; Start 01/12/19 at 13:30 Oxycodone HCl (Roxicodone) 10 mg Q4H PRN PO .PAIN; Start 01/12/19 at 13:30 Oxycodone HCl (Roxicodone) 5 mg Q4H PRN PO .PAIN; Start 01/12/19 at 13:30 Ketorolac Tromethamine (Toradol) 15 mg Q6H PRN IV .PAIN Last administered on 01/13/19at 21:08; Admin Dose 15 MG; Start 01/12/19 at 13:30 Celecoxib (Celebrex) 100 mg BID PO Last administered on 01/15/19at 08:17; Admin Dose 100 MG; Start 01/13/19 at 09:00 Gabapentin (Neurontin) 100 mg TID PO Last administered on 01/15/19at 08:17; Admin Dose 100 MG; Start 01/12/19 at 21:00 Docusate Sodium (Colace) 200 mg BID PO Last administered on 01/15/19 08:17; Admin Dose 200 MG; Start 01/13/19 at 09:00; Stop 01/16/19 at 08:59 Magnesium Hydroxide (Milk Of Mag) 30 ml HS PRN PO .CONSTIPATION Last administered on 01/15/19 05:23; Admin Dose 30 ML; Start 01/12/19 at 13:30 Naloxone HCl (Narcan) 0.2 mg Q2M PRN IV .RESP RATE; Start 01/12/19 at 13:30 Aspirin (Halfprin) 81 mg BID PO Last administered on 01/15/19 08:17; Admin Dose 81 MG; Start 01/13/19 at 09:00 Trazodone HCl (Desyrel) 50 mg HS PO Last administered on 01/14/19 20:35; Admin Dose 50 MG; Start 01/12/19 at 21:00 Hydromorphone HCl (Dilaudid) 1 mg Q3H PRN IV SEVERE PAIN LEVEL 7-10 Last administered on 01/15/19 08:17; Admin Dose 1 MG; Start 01/12/19 at 19:00 Ondansetron HCl (Zofran Inj) 4 mg Q4H PRN IV NAUSEA AND/OR VOMITING; Start 01/12/19 at 19:00 Pantoprazole (Protonix Tab) 40 mg DAILY@06 PO Last administered on 01/15/19 04:19; Admin Dose 40 MG; Start 01/13/19 at 08:30 Tamsulosin HCl (Flomax) 0.4 mg HS PO Last administered on 01/14/19 20:34; Admin Dose 0.4 MG; Start 01/13/19 at 21:00 Al Hydrox/Mg Hydrox/Simethicone (Mag-Al Plus) 30 ml Q6H PRN PO GASTROINTESTINAL UPSET Last administered on 01/14/19 00:40; Admin Dose 30 ML; Start 01/14/19 at 00:30 Acetaminophen (Tylenol Tab) 650 mg Q6H PRN PO MILD PAIN(1-3)OR ELEVATED TEMP Last administered on 01/15/19 06:43; Admin Dose 650 MG; Start 01/14/19 at 00:30 RUDY GILES Jan 15, 2019 11:13
[2019-01-15] MEDS: KETOROLAC 15 MG INJ IV PRN ×2 (12:33→19:27)
--- NOTE | 2019-01-15 14:23 | CONS ---
Consult Date/Type/Reason Admit Date/Time Jan 12, 2019 at 07:43 Initial Consult Date 01/13/19 Type of Consultation: Urology Reason for Consultation Bladder spasms Requesting Provider: BRIAN BLEVINS MD Date/Time of Note DATE: 01/15/19 TIME: 14:21 Subjective Patient is voiding well. He denies having any pain or spasms today Objective Vitals Vital Signs Date Temp Pulse Resp B/P (MAP) Pulse Ox O2 O2 Flow FiO2 Time Delivery Rate 01/15/19 98.9 104 14 98/60 (73) 100 Room Air 07:11 Intake and Output 01/14/19 01/14/19 01/15/19 1515:00 23:00 07:00 IntakeIntake Total 300 ml 200 ml OutputOutput Total 1305 ml BalanceBalance 300 ml -1105 ml Exam He has been voiding well and his postvoid residual was 45 mL. Results/Medications Result Diagram: 01/15/19 0430 01/15/19 0430 Results 24 hrs Laboratory Tests Test 01/15/19 04:30 White Blood Count 7.4 Red Blood Count 3.03 L Hemoglobin 9.3 L Hematocrit 28.3 L Mean Corpuscular Volume 93.4 Mean Corpuscular Hemoglobin 30.7 Mean Corpuscular Hemoglobin Concent 32.9 Red Cell Distribution Width 13.1 Platelet Count 155 Mean Platelet Volume 9.6 Immature Granulocytes % 0.100 Neutrophils % 64.6 Lymphocytes % 23.1 Monocytes % 11.8 H Eosinophils % 0.0 Basophils % 0.4 Nucleated Red Blood Cells % 0.0 Immature Granulocytes # 0.010 Neutrophils # 4.8 Lymphocytes # 1.7 Monocytes # 0.9 Eosinophils # 0.0 Basophils # 0.0 Nucleated Red Blood Cells # 0.0 Sodium Level 139 Potassium Level 4.1 Chloride Level 105 Carbon Dioxide Level 29 Anion Gap 5 Blood Urea Nitrogen 12 Creatinine 0.65 Est Glomerular Filtrat Rate mL/min > 60 Glucose Level 105 Calcium Level 7.9 L Home Meds No Active Prescriptions or Reported Meds Medications Current Medications IV Flush (NS 3 ml) 3 ml PER PROTOCOL IV ; Start 01/12/19 at 13:30 Oxycodone HCl (Roxicodone) 15 mg Q4H PRN PO .PAIN Last administered on 01/15/19at 11:29; Admin Dose 15 MG; Start 01/12/19 at 13:30 Oxycodone HCl (Roxicodone) 10 mg Q4H PRN PO .PAIN; Start 01/12/19 at 13:30 Oxycodone HCl (Roxicodone) 5 mg Q4H PRN PO .PAIN; Start 01/12/19 at 13:30 Ketorolac Tromethamine (Toradol) 15 mg Q6H PRN IV .PAIN Last administered on 01/15/19 12:33; Admin Dose 15 MG; Start 01/12/19 at 13:30 Celecoxib (Celebrex) 100 mg BID PO Last administered on 01/15/19 08:17; Admin Dose 100 MG; Start 01/13/19 at 09:00 Gabapentin (Neurontin) 100 mg TID PO Last administered on 01/15/19 12:31; Admin Dose 100 MG; Start 01/12/19 at 21:00 Docusate Sodium (Colace) 200 mg BID PO Last administered on 01/15/19 08:17; Admin Dose 200 MG; Start 01/13/19 at 09:00; Stop 01/16/19 at 08:59 Magnesium Hydroxide (Milk Of Mag) 30 ml HS PRN PO .CONSTIPATION Last administered on 01/15/19 05:23; Admin Dose 30 ML; Start 01/12/19 at 13:30 Naloxone HCl (Narcan) 0.2 mg Q2M PRN IV .RESP RATE; Start 01/12/19 at 13:30 Aspirin (Halfprin) 81 mg BID PO Last administered on 01/15/19 08:17; Admin Do se 81 MG; Start 01/13/19 at 09:00 Trazodone HCl (Desyrel) 50 mg HS PO Last administered on 01/14/19 20:35; Admin Dose 50 MG; Start 01/12/19 at 21:00 Hydromorphone HCl (Dilaudid) 1 mg Q3H PRN IV SEVERE PAIN LEVEL 7-10 Last administered on 01/15/19 13:22; Admin Dose 1 MG; Start 01/12/19 at 19:00 Ondansetron HCl (Zofran Inj) 4 mg Q4H PRN IV NAUSEA AND/OR VOMITING; Start 01/12/19 at 19:00 Pantoprazole (Protonix Tab) 40 mg DAILY@06 PO Last administered on 01/15/19at 04:19; Admin Dose 40 MG; Start 01/13/19 at 08:30 Tamsulosin HCl (Flomax) 0.4 mg HS PO Last administered on 01/14/19at 20:34; Admi n Dose 0.4 MG; Start 01/13/19 at 21:00 Al Hydrox/Mg Hydrox/Simethicone (Mag-Al Plus) 30 ml Q6H PRN PO GASTROINTESTINAL UPSET Last administered on 01/14/19at 00:40; Admin Dose 30 ML; Start 01/14/19 at 00:30 Acetaminophen (Tylenol Tab) 650 mg Q6H PRN PO MILD PAIN(1-3)OR ELEVATED TEMP Last administered on 01/15/19at 06:43; Admin Dose 650 MG; Start 01/14/19 at 00:30 Assessment/Plan Hospital Course (Demo Recall) 63-year-old male underwent revision of right total knee replacement on 01/12/2019. When he woke up from the surgery he noticed he had an indwelling Bell catheter and he complains that he feels bloated and thinks that the catheter is not draining well. The patient denies any prior history of voiding problems he usually has nocturia about 2 times a night and during the day he voids every 3 hours, he denies any dysuria, no history of gross hematuria, his urinary stream is strong, he denies any postvoid dribbling and he feels he em pties his bladder well. On the exam the Bell catheter is in good position and it is draining well and the urine is clear. Impression: Patient may be having bladder spasms because of the irritation from the Bell catheter. The Bell catheter was removed and the patient has been voiding well. Postvoid residual by bladder scan showed 45 mL postvoid residual. Urologically the patient is doing well. I will see him again if needed BLANCA SINGER MD Jan 15, 2019 14:23
[2019-01-15 15:06] VITALS: BP 99/64; PULSE 93; RESP 15
[2019-01-15 19:28] VITALS: BP 105/65; PULSE 80; RESP 18
[2019-01-15] MEDS: traZODone 50 MG TAB PO SCH (21:20)
[2019-01-15] MEDS: TAMSULOSIN (SR) 0.4 MG CAP PO SCH (21:22)
[2019-01-16 01:27] VITALS: BP 115/70; PULSE 99; RESP 18
[2019-01-16] MEDS: HYDROmorphONE 1 MG/ML SYG IV PRN ×3 (01:34→11:58)
[2019-01-16] MEDS: KETOROLAC 15 MG INJ IV PRN (04:59)
[2019-01-16] MEDS: PANTOPRAZOLE (EC) 40 MG TAB PO SCH (05:22)
[2019-01-16 08:00] VITALS: BP 112/52; PULSE 94; RESP 18
[2019-01-16] MEDS: GABAPENTIN 100 MG CAP PO SCH ×2 (09:19→11:58)
[2019-01-16] MEDS: CELECOXIB 100 MG CAP PO SCH (09:19)
[2019-01-16] MEDS: ASPIRIN (EC) 81 MG TAB PO SCH (09:19)
[2019-01-16] MEDS: ACETAMINOPHEN 325 MG TAB PO PRN (09:19)
[2019-01-16 15:02] VITALS: BP 129/68; PULSE 88; RESP 18
--- NOTE | 2019-01-16 18:58 | DS ---
Date/Time of Note Date/Time of Note DATE: 01/16/19 TIME: 18:52 Discharge Summary Admission/Discharge Info Admit Date/Time Jan 12, 2019 at 07:43 Discharge Date/Time Jan 16, 2019 at 17:00 Patient Condition: Stable Hospital Course Patient is discharged home health PT services and FWW, pain medication prescription by Dr Montgomery. -Failed right knee replacement. Status post revision of right total knee replacement by Dr. Montgomery. Continue aspirin and Neurontin. Status post e valuation treatment by physical therapy. -Urinary retention, resolved Dr. Machuca is following in urology consultation -GERD, continue Protonix Plan of care discussed with Dr. Padilla Home Meds No Active Prescriptions or Reported Meds Follow-up Plan Patient is to follow-up with Dr. Montgomery in 2 weeks Primary Care Provider Not On Staff Doctor Time spent on discharge: > 30 minutes Pending Labs Laboratory Tests Test 01/16/19 04:46 White Blood Count 6.3 10^3/ul (4.8-10.8) Red Blood Count 2.99 10^6/ul (4.70-6.10) Hemoglobin 9.1 g/dl (14.0-18.0) Hematocrit 28.4 % (42.0-52.0) Mean Corpuscular Volume 95.0 fl (82.0-101.0) Mean Corpuscular Hemoglobin 30.4 pg (29.0-33.0) Mean Corpuscular Hemoglobin Concent 32.0 g/dl (32.0-37.0) Red Cell Distribution Width 13.0 % (11.5-14.5) Platelet Count 173 10^3/UL (140-415) Mean Platelet Volume 9.2 fl (7.4-10.4) Immature Granulocytes % 0.500 % (0.001-0.429) Neutrophils % 61.3 % (39.0-77.0) Lymphocytes % 25.8 % (15.0-51.0) Monocytes % 11.8 % (0.0-11.0) Eosinophils % 0.0 % (0.0-7.0) Basophils % 0.6 % (0.0-2.0) Nucleated Red Blood Cells % 0.0 /100WBC (0.0-0.0) Immature Granulocytes # 0.030 10^3/ul (0.0-0.031) Neutrophils # 3.9 10^3/ul (1.6-7.5) Lymphocytes # 1.6 10^3/ul (0.8-2.9) Monocytes # 0.7 10^3/ul (0.3-0.9) Eosinophils # 0.0 10^3/ul (0.0-0.5) Basophils # 0.0 10^3/ul (0.0-0.1) Nucleated Red Blood Cells # 0.0 10^3/ul (0.0-0.0) Sodium Level 140 mmol/L (135-144) Potassium Level 4.6 mmol/L (3.5-5.1) Chloride Level 103 mmol/L (97-110) Carbon Dioxide Level 33 mmol/L (21-31) Anion Gap 4 (5-13) Blood Urea Nitrogen 12 mg/dl (7-20) Creatinine 0.76 mg/dl (0.61-1.24) Est Glomerular Filtrat Rate mL/min > 60 mL/min (>60) Glucose Level 110 mg/dl (70-220) Calcium Level 8.0 mg/dl (8.4-10.2) AZAR AVENDAÑO Jan 16, 2019 18:58
== END 2019-01-16 17:00 | disposition home health service (06) | DRG 468 ==
LOC: REC 07:43 → MS1 16:28
PROVIDERS: ADMIT Orthopaedic Surgery; ATTEND Orthopaedic Surgery
PROC: 0SRC0JZ Replacement of Right Knee Joint with Synthetic Substitute, Open Approach (ICD-10-PCS; 2019-01-12)
PROC: 0SPC0JZ Removal of Synthetic Substitute from Right Knee Joint, Open Approach (ICD-10-PCS; principal; 2019-01-12 10:30)
DX: T84.092A Other mechanical complication of internal right knee prosthesis, initial encounter (principal); R33.9 Retention of urine, unspecified; K21.9 Gastro-esophageal reflux disease without esophagitis
CPT/HCPCS: 73560; 80048; 81001; 85025; 86850; 86900; 86901; 87070; 87075; 87081; 87086; 88300; 97116; 97162; 97164; 97530; C1776; J0131; J0171; J0690; J1100; J1170; J1885; J2250; J2405; J2795; J3010; J7120